=== PATIENT | female | born 1990 | race Caucasian/White ===

== ENCOUNTER 2017-10-13 11:02 | Emergency (ER) | payer MEDICAID ==
[2017-10-13 11:38] LABS: BILIRUBIN,URINE NEGATIVE (NEGATIVE); GLUCOSE, URINE (UA) NEGATIVE (NEGATIVE); KETONES,URINE (UA) NEGATIVE (NEGATIVE); LEUKOCYTE ESTERASE, URINE MODERATE (NEGATIVE); NITRITE,URINE POSITIVE (NEGATIVE); OCCULT BLOOD,URINE SMALL (NEGATIVE); PROTEIN,URINE TRACE mg/dL (NEGATIVE); UROBILINOGEN,URINE 0.2 (NORMAL) E.U./dL (NORMAL)
[2017-10-13 11:42] LABS: CLARITY,URINE HAZY (CLEAR); HCG UR QUAL NEGATIVE
[2017-10-13 11:53] LABS: RBC,URINE 0-5 /HPF (0-5); SQUAMOUS EPITHELIAL CELL,UR NONE SEEN (<= Few); WBC CLUMPS,URINE PRESENT
[2017-10-13 11:54] LABS: BACTERIA,URINE Moderate /HPF (None Seen)
--- NOTE | 2017-10-13 12:24 | ED Physician Documentation ---
PD HPI ABD PAIN - Stated complaint Stated Complaint: R SIDE PAIN - Chief complaint Chief Complaint: General - History obtained from History obtained from: Patient - History of Present Illness Timing - onset: How many days ago (1-2 days of low back pain more on right, with movement of the pain to RLQ overnight/this morning. Feeling nausea without vomiting. No diarrhea. Has not noted any dysuria. Today having chills and felt feverish last night. Pain increasing RLQ this morning.) Timing - duration: Days (1-2) Timing - details: Gradual onset, Still present Quality: Aching, Throbbing, Pain Location: RLQ Radiation: Lower back, Right flank Improved by: No: Eating Worsened by: No: Eating Associated symptoms: Fever, Nausea. No: Vomiting, Diarrhea, Dysuria, Hematuria , Vaginal bleeding, Vaginal dc Similar symptoms before: Has not had sx before Recently seen: Not recently seen Review of Systems Constitutional: reports: Fever, Chills, Myalgias Nose: denies: Rhinorrhea / runny nose, Congestion Throat: denies: Sore throat Cardiac: denies: Chest pain / pressure Respiratory: denies: Cough GI: reports: Abdominal Pain, Nausea. denies: Abdominal Swelling, Vomiting, Diarrhea : reports: LMP (1 month ago). denies: Dysuria, Frequency, Discharge, Missed period Skin: denies: Rash, Lesions Neurologic: denies: Generalized weakness, Near syncope Endocrine: denies: Weight loss Immunocompromised: denies: Immunocompromised PD PAST MEDICAL HISTORY - Past Medical History Past Medical History: Yes Endocrine/Autoimmune: HyPOthyroidism - Past Surgical History Past Surgical History: Yes General: Cholecystectomy - Present Medications Home Medications: Ambulatory Orders Medication Instructions Recorded Confirmed Cephalexin [Keflex] 500 mg PO QID #24 capsule 10/13/17 HYDROcod/ACETAM 5/325 [[place] 5/325] 1 tab PO Q6H PRN #15 tablet 10/13/17 Levothyroxine [Synthroid] 150 mcg PO QDAC 10/13/17 10/13/17 Naproxen 375 mg PO BID #20 tablet 10/13/17 Ondansetron Odt [Zofran] 4 mg TL Q6H PRN #15 tablet 10/13/17 Sertraline HCl [Zoloft] 150 mg PO DAILY 10/13/17 10/13/17 - Allergies Allergies/Adverse Reactions: Allergies Allergy/AdvReac Type Severity Reaction Status Date / Time No Known Drug Allergies Allergy Verified 10/13/17 11:12 - Social History Does the pt smoke?: Yes Smoking Status: Current every day smoker Does the pt drink ETOH?: Yes Does the pt have substance abuse?: No PD ED PE NORMAL - Vitals Vital signs reviewed: Yes - General General: Alert and oriented X 3, Well developed/nourished, Other (appears uncomfortable) - HEENT HEENT: Pharynx benign - Neck Neck: Supple, no meningeal sign, No adenopathy - Cardiac Cardiac: RRR, No murmur - Respiratory Respiratory: Clear bilaterally - Abdomen Abdomen: Normal bowel sounds, Soft, Non distended, No organomegaly, Other (very tender RLQ with percussion and referred tenderness. Some local rebound. ) - Female Female : Deferred - Rectal Rectal: Deferred - Back Back: No CVA TTP (tender more lower back right side, without CVA tender per se. ) - Derm Derm: Normal color, Warm and dry, No rash - Neuro Neuro: Alert and oriented X 3, No motor deficit, Normal speech Results - Vitals Vitals: Vital Signs - 24 hr 10/13/17 10/13/17 10/13/17 11:09 13:19 15:43 Temperature 36.9 C Heart Rate 105 H 99 76 Respiratory 20 18 16 Rate Blood Pressure 132/76 H 134/76 H O2 Saturation 100 99 97 Oxygen O2 Source Room air - Labs Labs: Laboratory Tests 10/13/17 10/13/17 10/13/17 11:17 13:10 13:10 WBC 16.1 H RBC 4.75 Hgb 12.2 Hct 36.5 L MCV 76.7 L MCH 25.7 L MCHC 33.6 RDW 15.6 H Plt Count 257 MPV 8.3 Neut # 14.0 H Lymph # 1.1 L Elliott # 0.8 Eos # 0.1 Baso # 0.1 Absolute Nucleated RBC 0.00 Nucleated RBC % 0.0 Sodium 137 Potassium 3.9 Chloride 103 Carbon Dioxide 19 L Anion Gap 15.0 H BUN 9 Creatinine 0.6 Estimated GFR (MDRD) 119 Glucose 98 Calcium 8.8 Total Bilirubin 0.5 AST 22 ALT 25 Alkaline Phosphatase 87 Total Protein 7.2 Albumin 3.8 Globulin 3.4 Albumin/Globulin Ratio 1.1 Lipase 15 L Urine Color YELLOW Urine Clarity HAZY Urine pH 6.0 Ur Specific [place] 1.015 Urine Protein TRACE Urine Glucose (UA) NEGATIVE Urine Ketones NEGATIVE Urine Occult Blood SMALL H Urine Nitrite POSITIVE H Urine Bilirubin NEGATIVE Urine Urobilinogen 0.2 (NORMAL) Ur Leukocyte Esterase MODERATE H Urine RBC 0-5 Urine WBC >25 H Urine WBC Clumps PRESENT Ur Squamous Epith Cells NONE SEEN Urine Bacteria Moderate H Ur Microscopic Review INDICATED Urine Culture Comments INDICATED Urine HCG, Qual NEGATIVE - Rads (name of study) abd CT Radiology: Prelim report reviewed, EMP read contemporaneously PD MEDICAL DECISION MAKING - ED course Complexity details: considered differential (exam and symptoms concerning for appendicitis, even though she has positive UA for UTI. Talked with her and opted for CT to look at appendix separately. ), d/w patient Departure - Departure Disposition: 01 Home, Self Care Clinical Impression: Pyelonephritis Abdominal pain Qualifiers: Abdominal location: right lower quadrant Qualified Code(s): R10.31 - Right lower quadrant pain Condition: Stable Record reviewed to determine appropriate education?: Yes Instructions: ED Kidney Infec Female Prescriptions: Cephalexin [Keflex] 500 mg PO QID #24 capsule HYDROcod/ACETAM 5/325 [[place] 5/325] 1 tab PO Q6H PRN #15 tablet PRN Reason: Pain Naproxen 375 mg PO BID #20 tablet Ondansetron Odt [Zofran] 4 mg TL Q6H PRN #15 tablet PRN Reason: Nausea / Vomiting Comments: Drink lots of fluids. Your appendix appears normal on the scan. You do have a urinary tract and kidney infection. Use cephalexin 4 times a day for that. Add ondansetron if needed for nausea. Naproxen twice daily for the next 7-10 days for pain and inflammation. Add Tylenol or hydrocodone if needed for pains. Recheck if not improving over the next 2-3 days and return sooner if worsening symptoms such as persistent vomiting, high fevers, increased pain, other concerns. Discharge Date/Time: 10/13/17 15:43
[2017-10-13] MEDS ORDERED: ONDANSETRON 4 MG/2 ML VIAL IVP STA (12:44)
[2017-10-13] MEDS ORDERED: KETOROLAC 60 MG/2 ML VIAL IVP STA (12:44)
[2017-10-13] MEDS ORDERED: cefTRIAXone 1 GM in SODIUM CHLORIDE 0.9% MINIBAG 100 ML IV STA (12:44)
[2017-10-13] MEDS ORDERED: SODIUM CHLORIDE 0.9% 1,000 ML IV ONE (12:44)
[2017-10-13] MEDS ORDERED: IOPAMIDOL-300 100 ML VIAL ONE (13:06)
[2017-10-13 13:23] VITALS: BP 134/76
[2017-10-13 13:36] LABS: BASOPHILS # (AUTO) 0.1 10^3/uL (0.0-0.1); BASOPHILS % (AUTO) 0.6 %; EOSINOPHILS # (AUTO) 0.1 10^3/uL (0.0-0.7); EOSINOPHILS % (AUTO) 0.4 %; HGB - HEMOGLOBIN 12.2 g/dL (12.0-16.0); LYMPHOCYTES # (AUTO) 1.1 10^3/uL (1.5-3.5); LYMPHOCYTES % (AUTO) 6.8 %; MEAN CORPUSCULAR HEMOGLOBIN 25.7 pg (27.0-31.0); MEAN CORPUSCULAR HGB CONC 33.6 g/dL (32.0-36.0); MEAN CORPUSCULAR VOLUME 76.7 fL (81.0-99.0); MEAN PLATELET VOLUME 8.3 fL (7.9-10.8); MONOCYTES # (AUTO) 0.8 10^3/uL (0.0-1.0); NEUTROPHILS % (AUTO) 87.2 %; PLT - PLATELET COUNT 257 10^3/uL (130-450); RED BLOOD COUNT 4.75 10^6/uL (4.20-5.40); RED CELL DISTRIBUTION WIDTH 15.6 % (12.0-15.0); WHITE BLOOD COUNT 16.1 x10^3/uL (4.8-10.8)
[2017-10-13] MEDS ORDERED: IOPAMIDOL-300 100 ML VIAL IVP ONE (13:39)
[2017-10-13 13:50] LABS: ALBUMIN 3.8 g/dL (3.2-5.5); ALBUMIN/GLOBULIN RATIO 1.1 (1.0-2.2); BILIRUBIN,TOTAL 0.5 mg/dL (0.2-1.0); CALCIUM 8.8 mg/dL (8.5-10.3); CREATININE 0.6 mg/dL (0.4-1.0); TOTAL PROTEIN 7.2 g/dL (6.7-8.2)
--- NOTE | 2017-10-13 14:29 | CT Preliminary Report ---
Exam: CT ABDOMEN/PELVIS W/ IMPRESSION: 1. Normal appendix. 2. Possible very mild decreased density/enhancement within the right renal lower pole associated with very mild asymmetric perinephric stranding. This could represent pyelonephritis in the proper clinic al setting. 3. No evidence of urolithiasis or urinary tract obstruction. 4. Status post cholecystectomy. 5. The remainder the exam is unremarkable. [facility] SITE ID: [id number]
--- NOTE | 2017-10-13 14:30 | CT Report ---
EXAM: CT ABDOMEN AND PELVIS EXAM DATE: 10/13/2017 01:57 PM. CLINICAL HISTORY: RLQ pain since last night. COMPARISONS: None. TECHNIQUE: Routine helical CT imaging was performed through the abdomen and pelvis. IV contrast: 100M L OF ISOVUE 300. Enteric contrast: No. Reconstructions: Coronal and sagittal. In accordance with CT protocol optimization, one or more of the following dose reduction techniques w ere utilized for this exam: automated exposure control, adjustment of mA and/or KV based on patient s ize, or use of iterative reconstructive technique. FINDINGS: Lung Bases: Unremarkable. Liver: Normal. No masses. Gallbladder/Bile Ducts: Status post cholecystectomy. No ductal dilatation. Spleen: Normal. Pancreas: Normal. Adrenal Glands: Normal. Kidneys: Suggestion of very mild patchy decreased density/enhancement within the right renal lower po le with asymmetric very mild lower pole perinephric stranding. In the appropriate clinical setting, p yelonephritis can be considered. No hydronephrosis or hydroureter and no definite stones demonstrated . Left kidney is unremarkable. Peritoneal Cavity/Bowel: Normal. No free fluid, free air or adenopathy. No masses or acute inflammato ry process. The appendix is well visualized and normal. Pelvic Organs: Normal. The bladder and visualized pelvic organs are within normal limits. Vasculature: No aneurysms or other significant abnormality. Bones: No significant abnormality. Other: None. IMPRESSION: 1. Normal appendix. 2. Possible very mild decreased density/enhancement within the right renal lower pole associated with very mild asymmetric perinephric stranding. This could represent pyelonephritis in the proper clinic al setting. 3. No evidence of urolithiasis or urinary tract obstruction. 4. Status post cholecystectomy. 5. The remainder the exam is unremarkable. [facility] Referring Provider Line: [phone] SITE ID: [id number]
[2017-10-13] MEDS ORDERED: HYDROmorphone 1 MG/ML SYRINGE IVP STA (15:10)
== END 2017-10-13 15:43 | disposition home or self-care (01) ==
LOC: ED 11:02
DX: N12 Tubulo-interstitial nephritis, not specified as acute or chronic (principal); R10.31 Right lower quadrant pain; E03.9 Hypothyroidism, unspecified; F17.200 Nicotine dependence, unspecified, uncomplicated
CPT/HCPCS: 36415; 74177; 80053; 81001; 81025; 83690; 85025; 87086; 87181; 96365; 96375; 99283; J1170; Q9967; 81003